=== PATIENT | male | born 1965 | race Caucasian/White ===

== ENCOUNTER 2021-12-02 01:25 | Emergency (ER) | payer MEDICAID ==
[~2021-12-02] VITALS: Ht 172.7 cm; Wt 95.0 kg
[2021-12-02] MEDS ORDERED: ACETAMINOPHEN 325MG TABLET PO STA (01:41)
[2021-12-02] MEDS ORDERED: BACITRACIN ZINC OINT UDPKT TOP ONE (01:45)
[2021-12-02] MEDS ORDERED: LIDOCAINE HCL/PF 1% 10 MG/ML 5ML VIAL INFIL ONE (01:45)
[2021-12-02] MEDS ORDERED: LIDOCAINE HCL 1% 10 MG/ML 10ML VIAL IJ NR (02:00)
[2021-12-02] MEDS ORDERED: SODIUM CHLORIDE 0.9% 1,000 ML IV ONE (02:30)
[2021-12-02 03:20] LABS: BASOPHILS % 0.7 % (0.0-2.0); HEMATOCRIT. 47.4 % (42.0-52.0); HEMOGLOBIN. 16.6 g/dL (14.0-18.0); LYMPHOCYTES % 33.7 % (20.0-50.0); MEAN CORPUSCULAR HEMOGLOBIN 34.2 pg (28.0-32.0); MEAN CORPUSCULAR VOLUME 97.5 fL (80.0-94.0); MEAN PLATELET VOLUME 7.7 fl (7.4-10.4); MONOCYTES % 9.5 % (2.0-8.0); NEUTROPHILS % 54.1 % (40.0-76.0); PLATELET 223 x1000/uL (130-400); RED BLOOD CELL COUNT 4.86 mill/uL (4.7-6.1); RED CELL DISTRIBUTION WIDTH 13.2 % (11.6-14.6)
[2021-12-02 03:22] LABS: CHLORIDE 109 mEq/L (98-107)
[2021-12-02 03:26] LABS: ETHANOL BLOOD 183 mg/dL
[2021-12-02] MEDS ORDERED: MIDAZOLAM HCL 2 MG/2 ML VIAL IV ONE (04:45)
[2021-12-02] MEDS ORDERED: MORPHINE SULFATE 4 MG/ML CPJ (NOT FOR IM USE) IV ONE (04:45)
[2021-12-02] MEDS ORDERED: BACITRACIN ZINC OINT UDPKT TOP NR (05:45)
[2021-12-02] MEDS ORDERED: IOHEXOL-300 100 ML BOTTLE ONE (06:28)
[2021-12-02 10:17] VITALS: BP 135/61
== END 2021-12-02 10:18 | disposition home or self-care (01) ==
LOC: ER 01:25
DX: S01.01XA Laceration without foreign body of scalp, initial encounter (principal); S39.81XA Other specified injuries of abdomen, initial encounter; M54.2 Cervicalgia; R03.0 Elevated blood-pressure reading, without diagnosis of hypertension; Y08.02XA Assault by strike by baseball bat, initial encounter; Y93.89 Activity, other specified; Y92.480 Sidewalk as the place of occurrence of the external cause
CPT/HCPCS: 12001; 36415; 70450; 71045; 72125; 74176; 80053; 80320; 83690; 85025; 96374; 96375; 99291; J2250; J2270; J3490; J7030; 80305; Q9967; G0480

== ENCOUNTER 2024-10-14 17:39 | Emergency (ER) | payer MEDICAID, OTHER ==
[~2024-10-14] VITALS: Ht 167.6 cm; Wt 100.0 kg
[2024-10-14 17:44] VITALS: PULSE 125; RESP 18; O2SAT 97
[2024-10-14 17:46] VITALS: BP 120/93; TEMP 98.3; O2SAT 97
== END 2024-10-14 21:40 | disposition left against medical advice (07) ==
LOC: ER 17:39
DX: R10.11 Right upper quadrant pain (principal); Z98.890 Other specified postprocedural states; Z53.21 Procedure and treatment not carried out due to patient leaving prior to being seen by health care provider
CPT/HCPCS: 93005